=== PATIENT | female | born 1980 | race Two or more races ===

== ENCOUNTER 2021-08-02 08:44 | Emergency (ER) | payer OTHER ==
[2021-08-02 09:15] VITALS: BP 118/87; PULSE 99; TEMP 97.8; BMI 25.0
[2021-08-02] MEDS ORDERED: diazePAM 5 MG TABLET PO ONE (09:40)
[2021-08-02] MEDS ORDERED: KETOROLAC TROMETHAMINE 30 MG/1 ML VIAL IM ONE (09:40)
[2021-08-02] MEDS ORDERED: KETOROLAC TROMETHAMINE 30 MG/1 ML VIAL ONE (11:14)
[2021-08-02] MEDS ORDERED: diazePAM 5 MG TABLET ONE (11:15)
[2021-08-02 11:42] LABS: URINE APPEARANCE CLEAR; URINE BILIRUBIN NEGATIVE (NEGATIVE); URINE COLOR YELLOW; URINE GLUCOSE (UA) NEGATIVE (NEGATIVE); URINE KETONE NEGATIVE (NEGATIVE); URINE LEUK ESTERASE NEGATIVE (NEGATIVE); URINE NITRITE NEGATIVE (NEGATIVE); URINE PROTEIN NEGATIVE (NEGATIVE); URINE UROBILINOGEN 0.2 mg/dL (0.2-1.0)
[2021-08-02 11:44] LABS: HCG,QUALITATIVE URINE Negative
== END 2021-08-02 11:56 | disposition home or self-care (01) ==
LOC: JER 08:44 → JERFT 08:44
PROC: 3E0233Z Introduction of Anti-inflammatory into Muscle, Percutaneous Approach (ICD-10-PCS; principal; 2021-08-02)
DX: M79.10 Myalgia, unspecified site (principal); V43.52XA Car driver injured in collision with other type car in traffic accident, initial encounter
CPT/HCPCS: 71046-TC-FY; 71101-TC-LT-FY; 81003; 84703; 99284-25